=== PATIENT | female | born 2000 | race Caucasian/White ===

== ENCOUNTER 2025-04-03 13:55 | Emergency (ER) | payer SELFPAY ==
[~2025-04-03] VITALS: Ht 160 cm; Wt 95.5 kg
[2025-04-03 14:44] VITALS: O2SAT 100
[2025-04-03 14:59] LABS: CHLORIDE 106 mEq/L (98-107); POTASSIUM 3.8 mEq/L (3.5-5.1); SODIUM 141 mEq/L (136-145)
[2025-04-03 15:00] LABS: CALCIUM 9.5 mg/dL (8.7-10.4); CARBON DIOXIDE 26 mEq/L (21-32)
[2025-04-03 15:05] LABS: CREATININE 0.6 mg/dL (0.6-1.0); GLUCOSE 95 mg/dL (70-105); UREA NITROGEN BLOOD 12 mg/dL (9-23)
[2025-04-03 15:08] LABS: BASOPHILS % 2.6 % (0.0-2.0); EOSINOPHILS % 1.5 % (0.0-5.0); HEMATOCRIT. 41.3 % (36.0-48.0); HEMOGLOBIN. 13.5 g/dL (12.0-16.0); LYMPHOCYTES % 29.3 % (20.0-50.0); MEAN CORPUSCULAR HEMOGLOBIN 26.7 pg (28.0-32.0); MEAN CORPUSCULAR HGB CONC 32.6 g/dL (31.0-37.0); MEAN CORPUSCULAR VOLUME 81.9 fL (81.0-99.0); MEAN PLATELET VOLUME 8.1 fl (7.4-10.4); MONOCYTES % 6.1 % (2.0-8.0); NEUTROPHILS % 60.5 % (40.0-76.0); PLATELET 352 x1000/uL (130-400); RED BLOOD CELL COUNT 5.04 mill/uL (4.2-5.4); RED CELL DISTRIBUTION WIDTH 13.9 % (11.6-14.6); WHITE BLOOD COUNT 9.8 x1000/uL (4.5-11.0)
[2025-04-03 15:39] LABS: ALANINE AMINOTRANSFERASE 39 IU/L (10-49); ALBUMIN 4.6 g/dL (3.2-4.8); ASPARTATE AMINOTRANSFERASE 33 IU/L (<34); BILIRUBIN DIRECT < 0.1 mg/dL (<=3.0); BILIRUBIN TOTAL 0.4 mg/dL (0.1-1.0); PROTEIN TOTAL 7.9 g/dL (6.0-8.3)
[2025-04-03 15:45] LABS: HCG SCREEN NEGATIVE
[2025-04-03 16:19] LABS: CLARITY URINE CLOUDY (CLEAR); COLOR URINE ORANGE (YELLOW); GLUCOSE URINE NEGATIVE (NEGATIVE); KETONES URINE NEGATIVE (NEGATIVE); LEUKOCYTE ESTERASE URINE 2+ (NEGATIVE); NITRITE URINE NEGATIVE (NEGATIVE); OCCULT BLOOD URINE 3+ (NEGATIVE); PROTEIN URINE 1+ (NEGATIVE); SPECIFIC GRAVITY URINE 1.022 (1.005-1.030); UROBILINOGEN URINE 0.2 E.U./dL (0.2-1.0)
[2025-04-03 16:49] VITALS: RESP 16
[2025-04-03 17:06] LABS: RBC URINE TNTC /hpf (0-2)
[2025-04-03 17:07] LABS: BACTERIA URINE 1+; MUCUS URINE TRACE /lpf (< = 2+); SQUAMOUS EPITHELIAL CELL URINE 2+ /lpf (RARE/1+)
[2025-04-03] MEDS: IBUPROFEN 800MG TABLET PO SCH (20:08)
[2025-04-03] MEDS: TRAMADOL 50MG TABLET PO SCH (20:08)
[2025-04-03] MEDS ORDERED: TRAM50TA3 MT (20:58)
[2025-04-03] MEDS ORDERED: IBUP-2030 MT (20:58)
[2025-04-03 21:15] VITALS: BP 118/72; PULSE 78; TEMP 37.1; O2SAT 100
== END 2025-04-03 21:29 | disposition home or self-care (01) ==
LOC: ER 13:55
DX: R10.2 Pelvic and perineal pain (principal)
CPT/HCPCS: 36415; 76830; 76856; 80048; 80076; 81003; 84703; 85025; 99284